=== PATIENT | male | born 1935 | race Two or more races ===

== ENCOUNTER 2021-05-13 08:19 | Outpatient (CLI) | payer OTHER ==
[~2021-05-13 08:19] MED LIST: NORVASC5 MG; VASOTEC10 MG; ZANTAC150 MG
== END 2021-05-13 09:34 | disposition home or self-care (01) ==
LOC: NUCLEAR 08:19
PROVIDERS: ATTEND Physical Medicine & Rehabilitation
DX: I87.2 Venous insufficiency (chronic) (peripheral) (principal); S86.112A Strain of other muscle(s) and tendon(s) of posterior muscle group at lower leg level, left leg, initial encounter

== ENCOUNTER 2022-02-24 08:00 | Outpatient (CLI) | payer OTHER | END 2022-02-24 08:30 | disposition home or self-care (01) | LOC: PPH VACUNA 08:00 | PROVIDERS: ATTEND Emergency Medicine Pediatric Emergency Medicine | DX: Z23 Encounter for immunization (principal) ==

== ENCOUNTER 2023-01-23 08:21 | Outpatient (CLI) | payer OTHER | END 2023-01-23 08:29 | disposition home or self-care (01) | LOC: RAD 08:21 | PROVIDERS: ATTEND Surgery | DX: R09.02 Hypoxemia (principal); R05.9 Cough, unspecified ==

== ENCOUNTER 2023-02-12 14:15 | Outpatient (CLI) | payer OTHER | END 2023-02-12 14:20 | disposition home or self-care (01) | LOC: NUCLEAR 14:15 | PROVIDERS: ATTEND Physical Medicine & Rehabilitation | DX: I82.402 Acute embolism and thrombosis of unspecified deep veins of left lower extremity (principal) ==